=== PATIENT | female | born 2000 | race Caucasian/White ===

== ENCOUNTER 2019-10-22 08:59 | Emergency (ER) | payer MEDICAID ==
[~2019-10-22] VITALS: Ht 165.1 cm; Wt 104.5 kg
[2019-10-22 09:27] VITALS: Ht 165.1 cm; Wt 104.5 kg
[2019-10-22] MEDS ORDERED: GLUCOPHAGE1000 MG PO (09:28)
[2019-10-22] MEDS ORDERED: EFFEXOR25 MG PO (09:29)
[2019-10-22] MEDS ORDERED: ALBUTEROL SULF8.5 GM INH (09:29)
[2019-10-22 10:19] LABS: HEMATOCRIT 48.1 % (36.0-48.0); HEMOGLOBIN 15.8 g/dL (12-16); LYMPHOCYTES 36.1 % (15-50); MCH 27.1 pg (26.0-34.0); MCHC 32.8 g/dL (31.0-37.0); MCV 82.4 fL (80.0-100.0); MEAN PLATELET VOLUME 10.2 fL (7.4-10.4); NEUTROPHILS 56.9 % (40-80); PLATELET COUNT 404 10x3/uL (130-400); RBC 5.84 10x6/uL (4.00-5.40); WBC 8.3 10x3/uL (4.8-10.8)
[2019-10-22 10:27] LABS: HCG SERUM POSITIVE (NEGATIVE)
[2019-10-22 10:30] LABS: CALC OSMOLALITY 273 mosm/kg (275-300); CALCIUM 8.7 mg/dL (8.5-10.1); CHLORIDE - SERUM 99 mmol/L (98-107); CREATININE - SERUM 0.8 mg/dL (0.6-1.3); GLUCOSE 287 mg/dL (74-106); POTASSIUM - SERUM 3.6 mmol/L (3.5-5.1); SODIUM 132 mmol/L (136-145); UREA NITROGEN 10 mg/dL (7-18); eGFR NON AFRICAN AMERICAN > 90 mL/min (90-120)
[2019-10-22 10:56] LABS: ALBUMIN 3.6 g/dL (3.4-5.0); ALKALINE PHOSPHATASE 53 U/L (30-120); ALT (SGPT) 29 U/L (10-68); BILIRUBIN - TOTAL 0.55 mg/dL (0.2-1.3); HCG - QUANTITATIVE (MATERNAL) 1849 mIU/mL; PROTEIN - SERUM 7.6 g/dL (6.4-8.2)
[2019-10-22 11:30] LABS: BILIRUBIN NEGATIVE (NEGATIVE); GLUCOSE 1000 mg/dL (NEGATIVE); KETONE NEGATIVE (NEGATIVE); NITRITE NEGATIVE (NEGATIVE); SPECIFIC GRAVITY 1.015 (1.005-1.020); UROBILINOGEN NORMAL (NORMAL)
[2019-10-22 11:31] LABS: BACTERIA FEW /hpf (NEGATIVE); EPITHELIAL CELLS 0-5 /hpf (0-5); RED CELLS - URINE 25-50 /hpf (0-5); WHITE CELLS - URINE 0-5 /hpf (NEGATIVE)
[2019-10-22 14:14] VITALS: BP 156/74
== END 2019-10-22 14:14 | disposition home or self-care (01) ==
LOC: D.ER 08:59
PROVIDERS: Family Medicine
DX: O20.9 Hemorrhage in early pregnancy, unspecified (principal); Z3A.01 Less than 8 weeks gestation of pregnancy; R42 Dizziness and giddiness; R53.1 Weakness

== ENCOUNTER 2019-10-22 18:05 | Emergency (ER) | payer MEDICAID ==
[~2019-10-22] VITALS: Ht 165.1 cm; Wt 104.5 kg
[~2019-10-22 18:05] MED LIST: ALBUTEROL SULF8.5 GM INH; EFFEXOR25 MG PO; GLUCOPHAGE1000 MG PO
[2019-10-22 18:34] VITALS: Ht 165.1 cm; Wt 104.5 kg
[2019-10-22 20:39] VITALS: BP 122/82
== END 2019-10-22 20:39 | disposition home or self-care (01) ==
LOC: D.ER 18:05
DX: O20.0 Threatened abortion (principal); R10.9 Unspecified abdominal pain; Z3A.00 Weeks of gestation of pregnancy not specified